=== PATIENT | male | born 1990 | race Caucasian/White ===

== ENCOUNTER 2017-08-24 09:12 | Inpatient (IN) | payer OTHER ==
[2017-08-24 09:56] VITALS: BMI 23.7
--- NOTE | 2017-08-24 10:37 | HP ---
COWS - Scale Resting Pulse: 0= [place] 80 or Below Sweatin=Flushed/Facial Moisture Restless Observation: 1= Difficult to Sit Still Pupil Size: 0= Normal to Room Light Bone or Joint Aches: 2= Severe Diffuse Aches Runny Nose/ Eye Tearin= Nasal Congestion GI Upset > 30mins: 1= Stomach Cramp Tremor Observation: 2= Slight Tremor Visible Yawning Observation: 2= >3x During Session Anxiety or Irritability: 2=Irritable/Anxious Goose Flesh Skin: 3=Piloerection COWS Score: 16 CIWA Score - CIWA Score Nausea/Vomitin-Mild Nausea/No Vomiting Muscle Tremors: 4-Moderate,w/Arms Extend Anxiety: 4-Mod. Anxious/Guarded Agitation: 4-Moderately Restless Paroxysmal Sweats: 3 Orientation: 0-Oriented Tacttile Disturbances: 0-None Auditory Disturbances: 0-None Visual Disturbances: 0-None Headache: 1-Very Mild CIWA-Ar Total Score: 17 Admission ROS BHS - HPI Chief Complaint: I am here for detox. Allergies/Adverse Reactions: Allergies Allergy/AdvReac Type Severity Reaction Status Date / Time No Known Allergies Allergy Verified 08/24/17 10:30 History of Present Illness: pt is a 26yr old male with a history of heroin and xanax dependence seeking detox for treatment. Exam Limitations: No Limitations - Ebola screening Have you traveled outside of the country in the last 21 days: No Have you had contact with anyone from an Ebola affected area: No Have you been sick,other than usual withdrawal symptoms: No - Review of Systems Constitutional: Chills, Diaphoresis, Changes in sleep, Weakness EENT: reports: Tearing, Nose Congestion Respiratory: reports: No Symptoms reported Cardiac: reports: No Symptoms Reported GI: reports: Poor Appetite, Poor Fluid Intake : reports: No Symptoms Reported Musculoskeletal: reports: No Symptoms Reported Integumentary: reports: Flushing, Sweating Neuro: reports: Tingling, Tremors Endocrine: reports: Excessive Sweating, Flushing, Intolerance to Cold, Intolerance to Heat Hematology: reports: No Symptoms Reported Psychiatric: reports: Judgement Intact, Mood/Affect Appropiate, Orientated x3, Agitated, Anxious Other Systems: Reviewed and Negative Patient History - Patient Medical History Hx Anemia: No Hx Asthma: No Hx Chronic Obstructive Pulmonary Disease (COPD): No Hx Cancer: No Hx Cardiac Disorders: No Hx Congestive Heart Failure: No Hx Hypertension: No Hx Hypercholesterolemia: No Hx Pacemaker: No HX Cerebrovascular Accident: No Hx Seizures: No Hx Dementia: No Hx Diabetes: No Hx Gastrointestinal Disorders: No Hx Liver Disease: No Hx Genitourinary Disorders: No Hx Sexually Transmitted Disorders: No Hx Renal Disease (ESRD): No Hx Thyroid Disease: No Hx Human Immunodeficiency Virus (HIV): No (negative) Hx Hepatitis C: No (neagative) Hx Depression: No Hx Suicide Attempt: No (denies) Hx Bipolar Disorder: No Hx Schizophrenia: No - Patient Surgical History Past Surgical History: No Hx Neurologic Surgery: No Hx Cataract Extraction: No Hx Cardiac Surgery: No Hx Lung Surgery: No Hx Breast Surgery: No Hx Breast Biopsy: No Hx Abdominal Surgery: No Hx Appendectomy: No Hx Cholecystectomy: No Hx Genitourinary Surgery: No Hx Section: No Hx Orthopedic Surgery: No Anesthesia Reaction: No - PPD History Previous Implant?: Yes Documented Results: Negative w/o proof PPD to be Administered?: Yes - Reproductive History Patient is a Female of Child Bearing Age (11 -55 yrs old): No - Smoking Cessation Smoking history: Current every day smoker Have you smoked in the past 12 months: Yes Aproximately how many cigarettes per day: 10 Hx Chewing Tobacco Use: No Initiated information on smoking cessation: Yes 'Breaking Loose' booklet given: 08/24/17 - Substance & Tx. History Hx Alcohol Use: No Hx Substance Use: Yes Substance Use Type: Heroin, Opiates, Tranquilizers Hx Substance Use Treatment: Yes (last detox [facility] 03/2016) - Substances Abused Heroin Route: Injection Frequency: Daily Amount used: 10 bags Age of first use: 23 Date of Last Use: 08/23/17 Xanax Route: Oral Frequency: Daily Amount used: 10 mg. Age of first use: 19 Date of Last Use: 08/22/17 Family Disease History - Family Disease History Family History: Denies Admission Physical Exam BHS - Vital Signs Vital Signs: Vital Signs - 24 hr 08/24/17 09:53 Temperature 98.3 F Pulse Rate 73 Respiratory 18 Rate Blood Pressure 117/74 - Physical General Appearance: Yes: Appropriately Dressed, Moderate Distress, Tremorous, Irritable, Sweating, Anxious HEENTM: Yes: Normal Voice, Hearing Decreased, Nasal Congestion, Rhinorrhea Respiratory: Yes: Lungs Clear, Normal Breath Sounds, No Respiratory Distress Neck: Yes: No masses,lesions,Nodules Breast: Yes: Within Normal Limits Cardiology: Yes: Regular Rhythm, Regular Rate, S1, S2 Abdominal: Yes: Normal Bowel Sounds, Non Tender, Soft Genitourinary: Yes: Within Normal Limits Back: Yes: Normal Inspection Musculoskeletal: Yes: full range of Motion Extremities: Yes: Normal Capillary Refill, Normal Inspection, Non-Tender, Tremors Neurological: Yes: Fully Oriented, Alert, Normal Response Integumentary: Yes: Normal Color, Diaphoresis, Track [place] Lymphatic: Yes: Within Normal Limits - Diagnostic (1) Nicotine dependence Current Visit: Yes Status: Chronic Qualifiers: Nicotine product type: cigarettes Substance use status: uncomplicated Qualified Code(s): F17.210 - Nicotine dependence, cigarettes, uncomplicated (2) Opioid dependence with withdrawal Current Visit: Yes Status: Chronic (3) Sedative, hypnotic or anxiolytic dependence with withdrawal, uncomplicated Current Visit: Yes Status: Chronic Cleared for Admission [facility] - Detox or Rehab [facility] Level of Care: Medically Managed Detox Regimen/Protocol: Methadone/Valium [facility] Breath Alcohol Content Breath Alcohol Content: 0 Urine Drug Screen - Results Drug Screen Negative: No Urine Drug Screen Results: DAKSHA-Cocaine, BZO-Benzodiazepines, OXY-Oxycodone
[2017-08-24] MEDS ORDERED: guaiFENesin/D-METHORPHAN HB 10 ML UNIT-DOSE CUPS PO PRN (10:43)
[2017-08-24] MEDS ORDERED: MAG HYDROX/AL HYDROX/SIMETH 30 ML UNIT-DOSE CUP PO PRN (10:43)
[2017-08-24] MEDS ORDERED: NICOTINE POLACRILEX 4 MG GUM BUC PRN (10:43)
[2017-08-24] MEDS ORDERED: MAGNESIUM HYDROX 2400MG/30ML ORAL SUSPENSION 30 ML CUP PO PRN (10:43)
[2017-08-24] MEDS ORDERED: MAGNESIUM CITRATE 300 ML BOTTLE PO PRN (10:43)
[2017-08-24] MEDS ORDERED: MENTHOL/PHENOL 1 EACH UD MM PRN (10:43)
[2017-08-24] MEDS ORDERED: LOPERAMIDE HCL 2 MG CAPSULE PO PRN (10:43)
[2017-08-24] MEDS ORDERED: P-EPHED 60MG/TRIPROLIDI 2.5MG TABLET PO PRN (10:43)
[2017-08-24] MEDS ORDERED: IBUPROFEN 400 MG TABLET (FP) PO PRN (10:43)
[2017-08-24] MEDS ORDERED: ACETAMINOPHEN 325 MG TABLET (FP) PO PRN (10:43)
[2017-08-24] MEDS ORDERED: diazePAM 5 MG TABLET PO ONE (11:35)
[2017-08-24] MEDS ORDERED: METHADONE HCL 10 MG TABLET (FOR DETOX USE ONLY) PO ONE ×2 (11:37→23:00)
[2017-08-24] MEDS: diazePAM 5 MG TABLET PO SCH ×2 (15:12→22:48)
[2017-08-24 17:11] LABS: URINE APPEARANCE CLEAR; URINE BILIRUBIN NEGATIVE (NEGATIVE); URINE BLOOD NEGATIVE (NEGATIVE); URINE COLOR YELLOW; URINE GLUCOSE (UA) NEGATIVE (NEGATIVE); URINE KETONE TRACE (NEGATIVE); URINE LEUK ESTERASE NEGATIVE (NEGATIVE); URINE NITRITE NEGATIVE (NEGATIVE)
[2017-08-24 17:27] LABS: URINE PROTEIN 1+ (NEGATIVE)
[2017-08-24 17:29] LABS: URINE HYALINE CAST 2 /lpf; URINE MUCUS MODERATE
[2017-08-24] MEDS: diazePAM 5 MG TABLET PO PRN (20:30)
[2017-08-24] MEDS: THIAMINE HCL 100 MG TABLET (FP) PO SCH (22:48)
[2017-08-25] MEDS: diazePAM 5 MG TABLET PO SCH ×3 (05:34→22:13)
[2017-08-25 09:47] LABS: HEMATOCRIT 45.7 % (35.4-49); HEMOGLOBIN 15.4 GM/dL (11.7-16.9); MCH 28.7 pg (25.7-33.7); MCHC 33.6 g/dl (32.0-35.9); MEAN CELL VOLUME 85.4 fl (80-96); MEAN PLT VOLUME 8.6 fl (7.5-11.1); PLATELET COUNT 209 K/MM3 (134-434); RBC 5.35 M/mm3 (4.00-5.60); RDW 14.8 % (11.9-15.9); WHITE BLOOD COUNT 8.3 K/mm3 (4.0-10.0)
[2017-08-25] MEDS ORDERED: METHADONE HCL 10 MG TABLET (FOR DETOX USE ONLY) PO SCH (10:00)
[2017-08-25 10:28] LABS: ALBUMIN 3.9 g/dl (3.4-5.0); ANION GAP 7 (8-16); BLOOD UREA NITROGEN 11 mg/dL (7-18); CALCIUM 9.1 mg/dL (8.5-10.1); CHLORIDE 101 mmol/L (98-107); CO2 28 mmol/L (21-32); CREATININE 0.7 mg/dL (0.7-1.3); GLUCOSE,RANDOM 104 mg/dL (74-106); POTASSIUM 4.3 mmol/L (3.5-5.1); SGOT/AST 56 U/L (15-37); SGPT/ALT 90 U/L (12-78); SODIUM 136 mmol/L (136-145)
[2017-08-25 10:30] LABS: ALK PHOS 136 U/L (45-117); BILIRUBIN,TOTAL 0.4 mg/dL (0.2-1.0); TOT PROT 7.4 g/dl (6.4-8.2)
[2017-08-25] MEDS: PRENATAL VITAMINS W/ FOLIC ACID TABLET (FP) PO SCH (10:41)
[2017-08-25] MEDS: NICOTINE 21 MG/24 HOURS TOPICAL PATCH TD SCH (10:41)
--- NOTE | 2017-08-25 11:54 | PN ---
[facility] CIWA - CIWA Score Nausea/Vomitin-No Nausea/No Vomiting Muscle Tremors: 4-Moderate,w/Arms Extend Anxiety: 4-Mod. Anxious/Guarded Agitation: 4-Moderately Restless Paroxysmal Sweats: 1-Minimal Palms Moist Orientation: 0-Oriented Tacttile Disturbances: 3-Moderate Itch/Numb/Burn Auditory Disturbances: 0-None Visual Disturbances: 0-None Headache: 0-None Present CIWA-Ar Total Score: 16 S COWS - Scale Resting Pulse: 0= [place] 80 or Below Sweatin= Chills/Flushing Restless Observation: 3= Extraneous Movement Pupil Size: 0= Normal to Room Light Bone or Joint Aches: 4=Acute Joint/Muscle Pain Runny Nose/ Eye Tearin= None GI Upset > 30mins: 1= Stomach Cramp Tremor Observation of Outstretched Hands: 2= Slight Tremor Visible Yawning Observation: 1= 1-2x During Session Anxiety or Irritability: 2=Irritable/Anxious Goose Flesh Skin: 0=Smooth Skin COWS Score: 14 [facility] Progress Note (SOAP) Subjective: ANXIETY,SWEATS,MUSCLE ACHES. Objective: 08/25/17 11:54 Vital Signs Temperature 99.2 F 08/25/17 09:51 Pulse Rate 77 08/25/17 09:51 Respiratory Rate 18 08/25/17 09:51 Blood Pressure 103/66 08/25/17 09:51 O2 Sat by Pulse Oximetry (%) Laboratory Last Values WBC 8.3 K/mm3 (4.0-10.0) D 08/25/17 05:45 RBC 5.35 M/mm3 (4.00-5.60) 08/25/17 05:45 Hgb 15.4 GM/dL (11.7-16.9) 08/25/17 05:45 Hct 45.7 % (35.4-49) 08/25/17 05:45 MCV 85.4 fl (80-96) 08/25/17 05:45 MCH 28.7 pg (25.7-33.7) 08/25/17 05:45 MCHC 33.6 g/dl (32.0-35.9) 08/25/17 05:45 RDW 14.8 % (11.9-15.9) 08/25/17 05:45 Plt Count 209 K/MM3 (134-434) 08/25/17 05:45 MPV 8.6 fl (7.5-11.1) 08/25/17 05:45 Sodium 136 mmol/L (136-145) 08/25/17 05:45 Potassium 4.3 mmol/L (3.5-5.1) 08/25/17 05:45 Chloride 101 mmol/L (98-107) 08/25/17 05:45 Carbon Dioxide 28 mmol/L (21-32) 08/25/17 05:45 Anion Gap 7 (8-16) L 08/25/17 05:45 BUN 11 mg/dL (7-18) D 08/25/17 05:45 Creatinine 0.7 mg/dL (0.7-1.3) 08/25/17 05:45 Creat Clearance w eGFR > 60 (>60) 08/25/17 05:45 Random Glucose 104 mg/dL (74-106) 08/25/17 05:45 Calcium 9.1 mg/dL (8.5-10.1) 08/25/17 05:45 Total Bilirubin 0.4 mg/dL (0.2-1.0) D 08/25/17 05:45 AST 56 U/L (15-37) H D 08/25/17 05:45 ALT 90 U/L (12-78) H D 08/25/17 05:45 Alkaline Phosphatase 136 U/L (45-117) H D 08/25/17 05:45 Total Protein 7.4 g/dl (6.4-8.2) 08/25/17 05:45 Albumin 3.9 g/dl (3.4-5.0) 08/25/17 05:45 Urine Color Yellow 08/24/17 15:00 Urine Appearance Clear 08/24/17 15:00 Urine pH 5.0 (5.0-8.0) 08/24/17 15:[address] [place] 1.019 (1.001-1.035) 08/24/17 15:00 Urine Protein 1+ (NEGATIVE) H 08/24/17 15:00 Urine Glucose (UA) Negative (NEGATIVE) 08/24/17 15:00 Urine Ketones Trace (NEGATIVE) H 08/24/17 15:00 Urine Blood Negative (NEGATIVE) 08/24/17 15:00 Urine Nitrite Negative (NEGATIVE) 08/24/17 15:00 Urine Bilirubin Negative (NEGATIVE) 08/24/17 15:00 Urine Urobilinogen 2.0 mg/dL (0.2-1.0) 08/24/17 15:00 Ur Leukocyte Esterase Negative (NEGATIVE) 08/24/17 15:00 Urine WBC (Auto) 1 /hpf (3-5) 08/24/17 15:00 Urine RBC (Auto) <1 /hpf (0-3) 08/24/17 15:00 Hyaline Casts 2 /lpf 08/24/17 15:00 Urine Mucus Moderate 08/24/17 15:00 HIV 1&2 Antibody Screen Negative 08/24/17 11:30 HIV P24 Antigen Negative 08/24/17 11:30 Assessment: 08/25/17 11:54 WITHDRAWAL SX Plan: CONTINUE DETOX
[2017-08-25] MEDS: diazePAM 5 MG TABLET PO PRN ×2 (12:04→18:12)
--- NOTE | 2017-08-25 14:01 | EKG ---
Test Reason : Blood Pressure : / mmHG Vent. Rate : 056 BPM Atrial Rate : 056 BPM P-R Int : 130 ms QRS Dur : 094 ms QT Int : 442 ms P-R-T Axes : 038 055 056 degrees QTc Int : 426 ms SINUS BRADYCARDIA OTHERWISE NORMAL ECG NO PREVIOUS ECGS AVAILABLE Confirmed by MD Shravan, Nicola ([id number]) on 08/25/2017 2:01:16 PM Referred By: Confirmed By:Nicola Cheney MD
[2017-08-25] MEDS: THIAMINE HCL 100 MG TABLET (FP) PO SCH (22:13)
[2017-08-26] MEDS ORDERED: METHADONE HCL 5 MG TABLET (FOR DETOX USE ONLY) PO SCH (10:00)
[2017-08-26] MEDS: PRENATAL VITAMINS W/ FOLIC ACID TABLET (FP) PO SCH (10:32)
[2017-08-26] MEDS: diazePAM 5 MG TABLET PO SCH ×2 (10:32→22:08)
[2017-08-26] MEDS: NICOTINE 21 MG/24 HOURS TOPICAL PATCH TD SCH (11:08)
--- NOTE | 2017-08-26 11:45 | PN ---
S CIWA - CIWA Score Nausea/Vomitin-No Nausea/No Vomiting Muscle Tremors: 4-Moderate,w/Arms Extend Anxiety: 4-Mod. Anxious/Guarded Agitation: 4-Moderately Restless Paroxysmal Sweats: 1-Minimal Palms Moist Orientation: 0-Oriented Tacttile Disturbances: 3-Moderate Itch/Numb/Burn Auditory Disturbances: 0-None Visual Disturbances: 0-None Headache: 0-None Present CIWA-Ar Total Score: 16 BHS COWS - Scale Resting Pulse: 1= [place] 81-100 Sweatin= Chills/Flushing Restless Observation: 3= Extraneous Movement Pupil Size: 2= Moderately Dilated Bone or Joint Aches: 4=Acute Joint/Muscle Pain Runny Nose/ Eye Tearin= Nasal Congestion GI Upset > 30mins: 1= Stomach Cramp Tremor Observation of Outstretched Hands: 2= Slight Tremor Visible Yawning Observation: 2= >3x During Session Anxiety or Irritability: 2=Irritable/Anxious Goose Flesh Skin: 0=Smooth Skin COWS Score: 19 BHS Progress Note (SOAP) Subjective: SLIGHT ANXIETY, SWEATS,FATIGUE. Objective: 08/26/17 11:43 WITHDRAWAL SX Assessment: 08/26/17 11:43 WITHDRAWAL SX Plan: CONTINUE DETOX
[2017-08-26] MEDS: diazePAM 5 MG TABLET PO PRN ×2 (12:31→16:36)
[2017-08-26] MEDS: THIAMINE HCL 100 MG TABLET (FP) PO SCH (22:08)
[2017-08-26] MEDS: hydrOXYzine PAMOATE 50 MG CAPSULE (FP) PO PRN (22:09)
[2017-08-27] MEDS: diazePAM 5 MG TABLET PO PRN (06:11)
[2017-08-27] MEDS ORDERED: METHADONE HCL 10 MG TABLET (FOR DETOX USE ONLY) PO SCH (10:00)
[2017-08-27] MEDS: diazePAM 5 MG TABLET PO SCH ×2 (10:31→22:34)
[2017-08-27] MEDS: NICOTINE 21 MG/24 HOURS TOPICAL PATCH TD SCH (10:32)
[2017-08-27] MEDS: PRENATAL VITAMINS W/ FOLIC ACID TABLET (FP) PO SCH (10:32)
--- NOTE | 2017-08-27 12:13 | PN ---
BHS Progress Note (SOAP) Subjective: DECREASED ANXIETY,CHILLS, SWEAT. Objective: 08/27/17 12:12 Vital Signs Temperature 96.9 F L 08/27/17 09:35 Pulse Rate 65 08/27/17 09:35 Respiratory Rate 18 08/27/17 09:35 Blood Pressure 107/64 08/27/17 09:35 O2 Sat by Pulse Oximetry (%) Laboratory Last Values WBC 8.3 K/mm3 (4.0-10.0) D 08/25/17 05:45 RBC 5.35 M/mm3 (4.00-5.60) 08/25/17 05:45 Hgb 15.4 GM/dL (11.7-16.9) 08/25/17 05:45 Hct 45.7 % (35.4-49) 08/25/17 05:45 MCV 85.4 fl (80-96) 08/25/17 05:45 MCH 28.7 pg (25.7-33.7) 08/25/17 05:45 MCHC 33.6 g/dl (32.0-35.9) 08/25/17 05:45 RDW 14.8 % (11.9-15.9) 08/25/17 05:45 Plt Count 209 K/MM3 (134-434) 08/25/17 05:45 MPV 8.6 fl (7.5-11.1) 08/25/17 05:45 Sodium 136 mmol/L (136-145) 08/25/17 05:45 Potassium 4.3 mmol/L (3.5-5.1) 08/25/17 05:45 Chloride 101 mmol/L (98-107) 08/25/17 05:45 Carbon Dioxide 28 mmol/L (21-32) 08/25/17 05:45 Anion Gap 7 (8-16) L 08/25/17 05:45 BUN 11 mg/dL (7-18) D 08/25/17 05:45 Creatinine 0.7 mg/dL (0.7-1.3) 08/25/17 05:45 Creat Clearance w eGFR > 60 (>60) 08/25/17 05:45 Random Glucose 104 mg/dL (74-106) 08/25/17 05:45 Calcium 9.1 mg/dL (8.5-10.1) 08/25/17 05:45 Total Bilirubin 0.4 mg/dL (0.2-1.0) D 08/25/17 05:45 AST 56 U/L (15-37) H D 08/25/17 05:45 ALT 90 U/L (12-78) H D 08/25/17 05:45 Alkaline Phosphatase 136 U/L (45-117) H D 08/25/17 05:45 Total Protein 7.4 g/dl (6.4-8.2) 08/25/17 05:45 Albumin 3.9 g/dl (3.4-5.0) 08/25/17 05:45 Urine Color Yellow 08/24/17 15:00 Urine Appearance Clear 08/24/17 15:00 Urine pH 5.0 (5.0-8.0) 08/24/17 15:00 Ur Specific [place] 1.019 (1.001-1.035) 08/24/17 15:00 Urine Protein 1+ (NEGATIVE) H 08/24/17 15:00 Urine Glucose (UA) Negative (NEGATIVE) 08/24/17 15:00 Urine Ketones Trace (NEGATIVE) H 08/24/17 15:00 Urine Blood Negative (NEGATIVE) 08/24/17 15:00 Urine Nitrite Negative (NEGATIVE) 08/24/17 15:00 Urine Bilirubin Negative (NEGATIVE) 08/24/17 15:00 Urine Urobilinogen 2.0 mg/dL (0.2-1.0) 08/24/17 15:00 Ur Leukocyte Esterase Negative (NEGATIVE) 08/24/17 15:00 Urine WBC (Auto) 1 /hpf (3-5) 08/24/17 15:00 Urine RBC (Auto) <1 /hpf (0-3) 08/24/17 15:00 Hyaline Casts 2 /lpf 08/24/17 15:00 Urine Mucus Moderate 08/24/17 15:00 RPR Titer Nonreactive (NONREACTIVE) 08/25/17 05:45 HIV 1&2 Antibody Screen Negative 08/24/17 11:30 HIV P24 Antigen Negative 08/24/17 11:30 Assessment: 08/27/17 12:12 WITHDRAWAL SX Plan: CONTINUE DETOX
[2017-08-27] MEDS: hydrOXYzine PAMOATE 50 MG CAPSULE (FP) PO PRN ×3 (12:19→22:35)
[2017-08-27] MEDS: THIAMINE HCL 100 MG TABLET (FP) PO SCH (22:35)
[2017-08-28] MEDS ORDERED: METHADONE HCL 5 MG TABLET (FOR DETOX USE ONLY) PO SCH (06:00)
[2017-08-28 06:30] VITALS: BP 101/66; PULSE 56; TEMP 96.5
--- NOTE | 2017-08-28 08:33 | DS ---
[facility] Detox Discharge Summary Admission Date: 08/24/17 Discharge Date: 08/28/17 - History Present History: Opioid Dependence, Sedative Dependence Additional Comments: DETOX COMPLETED. ALERT O X 3. NAD. Pertinent Past History: UNREMARKABLE - Physical Exam Results Vital Signs: Vital Signs Temperature 96.5 F L 08/28/17 06:28 Pulse Rate 56 L 08/28/17 06:28 Respiratory Rate 18 08/28/17 06:28 Blood Pressure 101/66 08/28/17 06:28 O2 Sat by Pulse Oximetry (%) Pertinent Admission Physical Exam Findings: WITHDRAWAL SX Laboratory Last Values WBC 8.3 K/mm3 (4.0-10.0) D 08/25/17 05:45 RBC 5.35 M/mm3 (4.00-5.60) 08/25/17 05:45 Hgb 15.4 GM/dL (11.7-16.9) 08/25/17 05:45 Hct 45.7 % (35.4-49) 08/25/17 05:45 MCV 85.4 fl (80-96) 08/25/17 05:45 MCH 28.7 pg (25.7-33.7) 08/25/17 05:45 MCHC 33.6 g/dl (32.0-35.9) 08/25/17 05:45 RDW 14.8 % (11.9-15.9) 08/25/17 05:45 Plt Count 209 K/MM3 (134-434) 08/25/17 05:45 MPV 8.6 fl (7.5-11.1) 08/25/17 05:45 Sodium 136 mmol/L (136-145) 08/25/17 05:45 Potassium 4.3 mmol/L (3.5-5.1) 08/25/17 05:45 Chloride 101 mmol/L (98-107) 08/25/17 05:45 Carbon Dioxide 28 mmol/L (21-32) 08/25/17 05:45 Anion Gap 7 (8-16) L 08/25/17 05:45 BUN 11 mg/dL (7-18) D 08/25/17 05:45 Creatinine 0.7 mg/dL (0.7-1.3) 08/25/17 05:45 Creat Clearance w eGFR > 60 (>60) 08/25/17 05:45 Random Glucose 104 mg/dL (74-106) 08/25/17 05:45 Calcium 9.1 mg/dL (8.5-10.1) 08/25/17 05:45 Total Bilirubin 0.4 mg/dL (0.2-1.0) D 08/25/17 05:45 AST 56 U/L (15-37) H D 08/25/17 05:45 ALT 90 U/L (12-78) H D 08/25/17 05:45 Alkaline Phosphatase 136 U/L (45-117) H D 08/25/17 05:45 Total Protein 7.4 g/dl (6.4-8.2) 08/25/17 05:45 Albumin 3.9 g/dl (3.4-5.0) 08/25/17 05:45 Urine Color Yellow 08/24/17 15:00 Urine Appearance Clear 08/24/17 15:00 Urine pH 5.0 (5.0-8.0) 08/24/17 15:00 Ur Specific [place] 1.019 (1.001-1.035) 08/24/17 15:00 Urine Protein 1+ (NEGATIVE) H 08/24/17 15:00 Urine Glucose (UA) Negative (NEGATIVE) 08/24/17 15:00 Urine Ketones Trace (NEGATIVE) H 08/24/17 15:00 Urine Blood Negative (NEGATIVE) 08/24/17 15:00 Urine Nitrite Negative (NEGATIVE) 08/24/17 15:00 Urine Bilirubin Negative (NEGATIVE) 08/24/17 15:00 Urine Urobilinogen 2.0 mg/dL (0.2-1.0) 08/24/17 15:00 Ur Leukocyte Esterase Negative (NEGATIVE) 08/24/17 15:00 Urine WBC (Auto) 1 /hpf (3-5) 08/24/17 15:00 Urine RBC (Auto) <1 /hpf (0-3) 08/24/17 15:00 Hyaline Casts 2 /lpf 08/24/17 15:00 Urine Mucus Moderate 08/24/17 15:00 RPR Titer Nonreactive (NONREACTIVE) 08/25/17 05:45 HIV 1&2 Antibody Screen Negative 08/24/17 11:30 HIV P24 Antigen Negative 02/12/18 11:30 - Treatment Hospital Course: Detox Protocol Followed, Detoxed Safely, Responded well, Discharged Condition Good, Rehab Referral Accepted Patient has Accepted a Rehab Referral to: IOP/[facility] - Medication Discharge Medications: Ambulatory Orders NK [No Known Home Medication] 03/19/16 - Diagnosis (1) Nicotine dependence Status: Chronic Qualifiers: Nicotine product type: cigarettes Substance use status: uncomplicated Qualified Code(s): F17.210 - Nicotine dependence, cigarettes, uncomplicated (2) Opioid dependence with withdrawal Status: Chronic (3) Sedative, hypnotic or anxiolytic dependence with withdrawal, uncomplicated Status: Chronic - AMA Did Patient Leave Against Medical Advice: No
[2017-08-28] MEDS: PRENATAL VITAMINS W/ FOLIC ACID TABLET (FP) PO SCH (08:59)
[2017-08-28] MEDS ORDERED: METHADONE HCL 10 MG TABLET (FOR DETOX USE ONLY) PO SCH (10:00)
[2017-08-28] MEDS ORDERED: diazePAM 5 MG TABLET PO SCH (10:00)
[2017-08-29] MEDS ORDERED: METHADONE HCL 5 MG TABLET (FOR DETOX USE ONLY) PO SCH (06:00)
== END 2017-08-28 09:02 | disposition home or self-care (01) | DRG 773 ==
LOC: YASAS 09:12 → Y3N 11:32
PROVIDERS: ADMIT Internal Medicine; ATTEND Internal Medicine
PROC: HZ2ZZZZ Detoxification Services for Substance Abuse Treatment (ICD-10-PCS; principal; 2017-08-24)
DX: F11.23 Opioid dependence with withdrawal (principal); F13.230 Sedative, hypnotic or anxiolytic dependence with withdrawal, uncomplicated; F17.210 Nicotine dependence, cigarettes, uncomplicated
CPT/HCPCS: 36415; 80053; 81003; 81015; 85027; 86593; 87389; 93005; 93010